=== PATIENT | male | born 1945 | race Caucasian/White ===

== ENCOUNTER 2016-09-13 18:24 | Emergency (ER) | payer MEDICARE, OTHER ==
[~2016-09-13] VITALS: Ht 177.8 cm; Wt 97.7 kg
[2016-09-13 18:29] VITALS: BP 186/91; TEMP 98.3
[2016-09-13] MEDS ORDERED: LOPRESSOR 550 MG/TAB PO (19:00)
[2016-09-13] MEDS ORDERED: LOPID 600M600 MG/TAB PO (19:00)
[2016-09-13] MEDS ORDERED: GLUCOPHAGE500 MG/TAB PO (19:01)
[2016-09-13] MEDS ORDERED: NORVASC 5MG5 MG/TAB PO (19:01)
[2016-09-13] MEDS ORDERED: MEVACOR10 MG PO (19:02)
[2016-09-13] MEDS ORDERED: ASPIRIN 32325 MG/TAB PO (19:02)
[2016-09-13] MEDS ORDERED: LANTUS100 U/ML SQ (19:03)
[2016-09-13 21:57] VITALS: PULSE 73
== END 2016-09-13 21:57 | disposition home or self-care (01) ==
LOC: COL.ER 18:24
DX: S92.531B Displaced fracture of distal phalanx of right lesser toe(s), initial encounter for open fracture (principal); S92.531A Displaced fracture of distal phalanx of right lesser toe(s), initial encounter for closed fracture; W22.8XXA Striking against or struck by other objects, initial encounter; I10 Essential (primary) hypertension; E11.9 Type 2 diabetes mellitus without complications; Z79.4 Long term (current) use of insulin; I25.10 Atherosclerotic heart disease of native coronary artery without angina pectoris; Z95.1 Presence of aortocoronary bypass graft
CPT/HCPCS: J0690; J2270

== ENCOUNTER 2022-03-10 11:31 | Emergency (ER) | payer MEDICARE, OTHER ==
[~2022-03-10] VITALS: Ht 177.8 cm; Wt 90.9 kg
[~2022-03-10 11:31] MED LIST: ASPIRIN 32325 MG/TAB PO; GLUCOPHAGE500 MG/TAB PO; LANTUS100 U/ML SQ; LOPID 600M600 MG/TAB PO; LOPRESSOR 550 MG/TAB PO; MEVACOR10 MG PO; NORVASC 5MG5 MG/TAB PO
[2022-03-10 11:38] VITALS: TEMP 97.6
[2022-03-10 11:57] LABS: BASO # 0.1 K/mm3 (0.0-0.2); BASO % 0.8 % (0.0-2.0); EOS # 0.2 K/mm3 (0.0-0.7); EOS % 2.1 % (0.0-4.0); GRAN # 7.1 K/mm3 (1.4-6.5); GRAN % 71.9 % (42.2-75.2); HEMOGLOBIN 14.3 g/dl (13.5-18.0); LYMPH # 1.8 K/mm3 (1.2-3.4); LYMPH % 18.7 % (20.0-51.0); MEAN CELL VOLUME 82 fl (80.0-100.0); MEAN CORPUSCULAR HEMOGLOBIN 27 pg (27-31); MEAN CORPUSCULAR HGB CONC 33 g/dl (33.0-37.0); MEAN PLATELET VOLUME 11.6 fl (7.4-10.4); MONO # 0.6 K/mm3 (0.1-0.6); MONO % 6.3 % (1.7-9.3); PLATELET COUNT 296 K/mm3 (130-400); RED BLOOD COUNT 5.37 M/mm3 (4.20-5.60); REDCELL DISTRIBUTION WIDTH-CV 13.3 % (11.5-14.5)
[2022-03-10 12:33] LABS: ALBUMIN 3.8 gm/dL (3.4-4.8); BILIRUBIN,TOTAL 0.5 mg/dL (0.2-1.2); CALCIUM 9.6 mg/dL (8.4-10.2); CREATININE, serum 1.02 mg/dL (0.72-1.25); POTASSIUM 4.5 mmol/L (3.5-4.5); TOTAL PROTEIN 7.8 gm/dL (6.2-8.1)
[2022-03-10 12:42] LABS: TROPONIN-I 7.097 ng/mL (0.00-0.033)
[2022-03-10] MEDS ORDERED: PEPCID 20MG TAB20 MG PO (13:01)
[2022-03-10] MEDS ORDERED: LEVEMIR FLEX100 U/ML SQ (13:01)
[2022-03-10] MEDS ORDERED: FLEXERIL 1010 MG/TAB PO (13:02)
[2022-03-10 13:31] LABS: INR 1.1 (0.8-3.0); PROTHROMBIN TIME 12.4 SECONDS (9.7-12.8)
[2022-03-10 13:34] LABS: PARTIAL THROMBOPLASTIN TIME 31.7 SECONDS (26.0-37.0)
[2022-03-10 14:00] VITALS: BP 145/99; PULSE 122
== END 2022-03-10 14:15 | disposition short-term general hospital (02) ==
LOC: COL.ER 11:31
PROVIDERS: Emergency Medicine
DX: I21.4 Non-ST elevation (NSTEMI) myocardial infarction (principal); R79.89 Other specified abnormal findings of blood chemistry; R06.2 Wheezing; Z95.1 Presence of aortocoronary bypass graft; Z20.822 Contact with and (suspected) exposure to COVID-19; Z79.82 Long term (current) use of aspirin; Z99.89 Dependence on other enabling machines and devices
CPT/HCPCS: J1644; J1940; J2930